=== PATIENT | male | born 1990 | race African-American/Black ===

== ENCOUNTER 2019-01-28 05:51 | Day surgery (SDC) | payer OTHER ==
--- NOTE | 2019-01-27 21:24 | PREOPHP ---
DATE OF ADMISSION: 01/28/2019 HISTORY OF PRESENT ILLNESS: A 28-year-old patient is going to be admitted for diagnostic arthroscopy of the right shoulder, examination under general anesthesia, SLAP repair, Bankart repair, possible s ynovectomy and rotator cuff repair. This 28-year-old patient has been experiencing right shoulder pain for quite a while. Conservative t reatment resulted in limited benefit to the patient and the patient requested surgical intervention. PAST MEDICAL HISTORY: Unremarkable. SOCIAL HISTORY: The patient is nonsmoker, nondrinker. FAMILY HISTORY: Negative. PAST SURGICAL HISTORY: Right knee surgery. ALLERGIES: NO HISTORY OF ALLERGY TO MEDICATION. MEDICATIONS: The patient's medications in the past had been: 1. Folic acid. 2. D3. 3. Naprosyn. 4. For postop Bactrim-DS and ibuprofen was given. REVIEW OF SYSTEMS: Limited to present illness. PHYSICAL EXAMINATION: VITAL SIGNS: Height of 5 feet 10 inches, weighing 174 pounds. SKIN: Within normal limits. ENT: PERRLA. HEAD AND NECK: Normocephalic. Trachea midline. Bilateral symmetrical carotid pulses. No mass, no bruit, no lymphadenopathy. CARDIOVASCULAR: S1, S2 normal. No murmur. No JVD. No peripheral edema. LUNGS: Clear. ABDOMEN: Soft. No organomegaly. No mass. Bowel sounds present. GENITOURINARY AND RECTAL: Not done. Not pertinent to this admission. MUSCULOSKELETAL: Head and neck unremarkable. Right shoulder close to 90% range of motion, tenderness over the anterior glenohumeral joint, s ubacromial space. Positive dimple sign. Spine and both lower extremities has been normal. IMAGING: MRI of the right shoulder shows Hill-Sachs lesion and trace amount of anterior inferi or labrum compatible with chronic Bankart type injury, nondisplaced tear of the superior labrum exten ding into the posterior inferior labrum. DIAGNOSES: 1. Chronic anterior instability. 2. Possible posterior labral injury. 3. SLAP lesion. 4. Bankart lesion. 5. Possible rotator cuff tear. TREATMENT PLAN: Alternatives, risks and benefits discussed. The patient understands possible compli cations from surgery such as infection, bleeding, nerve damage, vascular damage, possibility of deep venous thrombosis, pulmonary embolism, hypersensitivity from medication, and even . [place] resul t may not be obtained depending on actual findings known or unknown factor or factors. No guarantee is being made. Formal H and P supposed to be done by PCP. Dictated By: ROSS HAZEL/DAE Conf#: [id number] DID#: [id number]
[2019-01-28] VITALS (14 sets, daily range): BP systolic 136–179; BP diastolic 78–108; PULSE 67–100; RESP 14–33; Ht 179.1 cm; Wt 78.2 kg
[~2019-01-28] VITALS: Ht 179.1 cm; Wt 78.2 kg
[2019-01-28] MEDS ORDERED: morphine SULFATE/PF (10 MG/10 ML) INJ ONE (06:54)
[2019-01-28] MEDS ORDERED: LACTATED RINGER'S 1,000 ML IV SCH (07:00)
[2019-01-28] MEDS ORDERED: EPINEPHrine 1 MG/ML 30 ML INJ IRR SCH (07:00)
[2019-01-28] MEDS ORDERED: GLYCOPYRROLATE 0.4 MG INJ ONE (07:00)
[2019-01-28] MEDS ORDERED: NEOSTIGMINE 3 MG/3 ML SYRINGE ONE (07:00)
--- NOTE | 2019-01-28 07:25 | PREAC ---
Date/Time of Note Date/Time of Note DATE: 01/28/19 TIME: 07:23 Anesthesia Eval and Record Evaluation Time Pre-Procedure Interview DATE: 01/28/19 TIME: 07:23 Age 28 Sex male NPO: 8 hrs Preoperative diagnosis Rt shoulder SLAP, Planned procedure Rt shoulder Arthroscopy Past Medical History Past Medical History: None Surgery & Anesthesia Issues No known issue Meds Anticoagulation: No Beta Nick within 24 hr: No Reason Beta Nick not given: Pt. not on B-Nick No Active Prescriptions or Reported Meds Current Medications Epinephrine (EPINEPHrine) ONCE IRR ; Start 01/28/19 at 07:00; Stop 01/28/19 at 10:00 Lactated Ringer's 1,000 ml @ 20 mls/hr Q24H IV Last administered on 01/28/19at 07:15; Admin Dose 20 MLS/HR; Start 01/28/19 at 07:00; Stop 01/30/19 at 08:59 Meds reviewed: Yes Allergies Coded Allergies: No Known Allergy (Unverified , 01/28/19) Allergies Reviewed: Yes Labs/Studies Labs Reviewed: Reviewed by anesthesiologist test: N/A Studies: ECG Pre-procedure Exam Last vitals Vital Signs Date Temp Pulse Resp B/P (MAP) Pulse Ox O2 O2 Flow FiO2 Time Delivery Rate 01/28/19 98.3 67 16 139/78 97 Room Air 07:06 (98) Airway: Adequate mouth opening, Adequate thyromental dist Mallampati: Mallampati II Teeth: Normal Lung: Normal Heart: Normal ASA Physical Status ASA physical status: 2 Emergency: None Planned Anesthetic General/MAC: ETT Planned Pain Management Parenteral pain med, Local by surgeon Pre-operative Attestations Prior to commencing anesthesia and surgery, the patient was re-evaluated, there was verification of: *The patient's identity *The results of appropriate recent lab work and preoperative vital signs *The above evaluation not changing prior to induction *Anesthetic plan, risk benefits, alternative and complications discussed with patient/family; questions answered; patient/family understands, accepts and wishes to proceed. NICOLLE MAC MD January 28, 2019 07:25
[2019-01-28] MEDS ORDERED: METOCLOPRAMIDE 10 MG INJ IV PRN (07:30)
[2019-01-28] MEDS ORDERED: ONDANSETRON 4 MG INJ IV PRN ×2 (07:30→12:00)
[2019-01-28] MEDS ORDERED: FENTAnyl 50 MCG/ML VIAL IV PRN ×2 (07:30→12:00)
[2019-01-28] MEDS ORDERED: DIPHENHYDRAMINE 50 MG INJ IV PRN ×2 (07:30→12:00)
[2019-01-28] MEDS ORDERED: MEPERIDINE 25 MG INJ IV PRN (07:30)
[2019-01-28] MEDS ORDERED: HYDROmorphONE 1 MG/5 ML IV SYRINGE IV PRN ×3 (07:30→12:00)
[2019-01-28] MEDS ORDERED: MIDAZOLAM 1 MG/ML 2 ML INJ ONE (07:41)
[2019-01-28] MEDS ORDERED: LIDOCAINE 2% (SDV) 5 ML INJ ONE (10:31)
[2019-01-28] MEDS ORDERED: PROPOFOL 20 ML ONE (10:31)
[2019-01-28] MEDS ORDERED: ONDANSETRON 4 MG INJ ONE (10:31)
[2019-01-28] MEDS ORDERED: ROCURONIUM 50 MG INJ ONE (10:31)
[2019-01-28] MEDS ORDERED: ROPIVACAINE 0.5 % 30 ML VIAL ONE (10:37)
--- NOTE | 2019-01-28 11:05 | SIPON ---
Date/Time of Note Date/Time of Note DATE: 01/28/19 TIME: 10:58 Operative Report Preoperative Diagnosis Right shoulder SLAP lesion, extensive Bankart lesion, synovitis, and loose body Postoperative Diagnosis The same Operation/Procedure Performed Diagnostic scope, EAU, SYNOVECTOMY, REMOVAL OF LOOSE BODY, slap. AND EXTENSIVE BANKART REPAIR Surgeon Ross Green MD assistant professor of archaeology [place] Anesthesia: general Estimated blood loss: minimal Transfusion Required none Specimen None Grafts/Implants none Complications none ROSS GREEN MD January 28, 2019 11:05
[2019-01-28] MEDS ORDERED: PROVENTIL HFA 6.7GM INHALER ONE (11:35)
--- NOTE | 2019-01-28 11:52 | PAC ---
Date/Time of Note Date/Time of Note DATE: 01/28/19 TIME: 11:51 Post-Anesthesia Notes Post-Anesthesia Note Last documented vital signs Vital Signs Date Temp Pulse Resp B/P (MAP) Pulse Ox O2 O2 Flow FiO2 Time Delivery Rate 01/28/19 94 20 170/87 100 Mask 11:47 (114) 01/28/19 98.0 11:42 Activity: WNL Respiratory function: WNL Cardiovascular function: WNL Mental status: Baseline Pain reasonably controlled: Yes Hydration appropriate: Yes Nausea/Vomiting absent: Yes Comments BP:150/56, P:78, Spo2:100%, T:98,9 NICOLLE MAC MD January 28, 2019 11:52
[2019-01-28] MEDS ORDERED: ALBUTEROL 0.083% (NEB) 2.5 MG/3 ML AMP HHN PRN (12:00)
[2019-01-28] MEDS ORDERED: LABETALOL HCL 20MG INJ IV PRN (12:00)
[2019-01-28] MEDS ORDERED: OXYCODONE/ACETAMINOPHEN (5/325) TAB PO PRN (12:00)
--- NOTE | 2019-01-28 14:29 | OPR ---
DATE OF OPERATION: PREOPERATIVE DIAGNOSES: Extensive Bankart lesion, superior labrum anterior and posterior synovitis l esion, loose body, right shoulder. POSTOPERATIVE DIAGNOSES: Extensive Bankart lesion, superior labrum anterior and posterior synovitis lesion, loose body, right shoulder. OPERATIVE PROCEDURES: Diagnostic arthroscopy, examination under general anesthesia, extensive Bankar t repair, SLAP repair, synovectomy, removal of loose body, right shoulder. ANESTHESIA: General and shoulder block. ANESTHESIOLOGIST: Osvaldo Hough MD BLEEDING: Minimal. COMPLICATIONS: None. OPERATIVE PROCEDURE IN DETAILS: The patient was transferred to the operating room and placed on the table in supine position. General anesthesia was induced. The patient was put in left decubitus pos ition. Axillary roll was applied. Bony areas were padded. Beanbag was deflated. Right shoulder wa s shaved, prepped and draped in routine fashion. Landmarks were marked. Through a posterior portal, glenohumeral joint was entered and anterolateral portal was established. Examination of the shoulde r indicated type 2 SLAP lesion, complete the marking down of the anterior labrum. There was rahel sh oulder instability under general anesthesia. There was synovitis superiorly and posteriorly. There was evidence of a Hill-Sachs lesion. There was part of the tissue from the surface inferior part whi ch was stripped off and layered and that was attached from loose body. Essentially, shoulder scoped from the posterior portal to the anterolateral portal and the cannula was inserted posteriorly to acc ess this tissue. It was removed with the help of shaver and the Arthrocare and smoothened the edges. Synovectomy with coagulation was done with Arthrocare Bovie. Trimming of the superior labrum was d one with shaver and Arthrocare Bovie. Then, we used SutureLasso, FiberStick and PushLock to repair t he type 2 SLAP lesion on the bleeding surface. Then we paid attention and partial synovectomy was done anteriorly. Then, abrasion of the anterior g lenoid was done. We used SutureLasso, FiberStick and PushLock adjacent to the anterior glenoid rim a nd shoulder was unstable consistent with capsular redundancy. We used another SutureLasso, FiberStic k to close the redundancy of the capsule. We incorporated it into the anterior labrum in 3 o'clock p osition on a bleeding surface. Shoulder was evacuated from debris with copious amounts of warm salin e irrigation. The rotator cuff was intact from inside. Lateral portal was established. We entered the subacromial space. Subacromial space indicated flat acromion and rotator cuff was identified. Shoulder joint, subacromial space was evacuated from debris with copious amounts of normal saline irr igation. The 2 anterior portal and lateral portal and posterior portal were closed with skin basilia . A 10 mg Duramorph mixed with 10 mL of injectable saline was injected half into the glenohumeral jeannie int and half in subacromial space. Sterile dressings were applied. Shoulder immobilizer was placed on. The patient was put supine and at this point, Dr. Hough prepared himself to give him shoulder b lock. Subsequently, the patient was taken to recovery room in good and stable condition. Dictated By: ROSS HAZEL/DAE Conf#: [id number] DID#: [id number]
== END 2019-01-28 15:30 | disposition home or self-care (01) ==
LOC: SDS 05:51
PROVIDERS: ATTEND Internal Medicine Endocrinology, Diabetes & Metabolism
DX: S43.431A Superior glenoid labrum lesion of right shoulder, initial encounter (principal); M24.011 Loose body in right shoulder; M65.9 Synovitis and tenosynovitis, unspecified; X58.XXXA Exposure to other specified factors, initial encounter; Y93.89 Activity, other specified; Y92.89 Other specified places as the place of occurrence of the external cause; Y99.8 Other external cause status
CPT/HCPCS: 29806; C1713; J0171; J2250; J2274; J2405; J2710; J2795; J3010

== ENCOUNTER 2019-05-13 06:14 | Day surgery (SDC) | payer OTHER ==
[2019-05-12 17:20] VITALS: BMI 24.4
[2019-05-13] VITALS (12 sets, daily range): BP systolic 118–146; BP diastolic 57–81; PULSE 60–92; RESP 14–38; Ht 180.3 cm; Wt 79.7 kg
[~2019-05-13] VITALS: Ht 180.3 cm; Wt 79.7 kg
[2019-05-13] MEDS ORDERED: EPINEPHrine 1 MG/ML 30 ML INJ ONE (06:53)
[2019-05-13] MEDS ORDERED: CEFAZOLIN 1 GM/50 ML (PMX) 50 ML IVPB SCH (07:00)
[2019-05-13] MEDS ORDERED: CEFAZOLIN 1 GM INJ ONE (07:40)
[2019-05-13] MEDS ORDERED: LIDOCAINE 2% (SDV) 5 ML INJ ONE (07:40)
[2019-05-13] MEDS ORDERED: PROPOFOL 20 ML ONE (07:40)
[2019-05-13] MEDS ORDERED: ONDANSETRON 4 MG INJ ONE (07:40)
[2019-05-13] MEDS ORDERED: SEVOFLURANE 15 MIN ONE (07:40)
[2019-05-13] MEDS ORDERED: MEPERIDINE 100 MG INJ ONE (07:40)
[2019-05-13] MEDS ORDERED: morphine SULFATE/PF (10 MG/10 ML) INJ ONE (08:05)
[2019-05-13] MEDS ORDERED: MEPERIDINE 25 MG INJ IV PRN (09:00)
[2019-05-13] MEDS ORDERED: FENTAnyl 50 MCG/ML VIAL IV PRN ×3 (09:00)
[2019-05-13] MEDS ORDERED: MIDAZOLAM 1 MG/ML 2 ML INJ IV PRN (09:00)
[2019-05-13] MEDS ORDERED: OXYCODONE/ACETAMINOPHEN (5/325) TAB PO PRN ×2 (09:00)
[2019-05-13] MEDS ORDERED: METOCLOPRAMIDE 10 MG INJ IV PRN (09:00)
[2019-05-13] MEDS ORDERED: DIPHENHYDRAMINE 50 MG INJ IV PRN (09:00)
[2019-05-13] MEDS ORDERED: HYDROmorphONE 1 MG/5 ML IV SYRINGE IV PRN ×6 (09:00→12:00)
[2019-05-13] MEDS ORDERED: ONDANSETRON 4 MG INJ IV PRN (09:00)
[2019-05-13] MEDS ORDERED: HYDROCODONE/APAP (5/325) TAB PO PRN (09:30)
[2019-05-13] MEDS ORDERED: ALBUTEROL 0.083% (NEB) 2.5 MG/3 ML AMP HHN STA (10:02)
[2019-05-13] MEDS ORDERED: ALBUTEROL 0.5% (NEB) 2.5 MG/0.5 ML AMP ONE (10:04)
== END 2019-05-13 15:05 | disposition home or self-care (01) ==
LOC: SDS 06:14
PROVIDERS: ATTEND Internal Medicine Endocrinology, Diabetes & Metabolism
DX: S83.241A Other tear of medial meniscus, current injury, right knee, initial encounter (principal); S83.281A Other tear of lateral meniscus, current injury, right knee, initial encounter; M65.861 Other synovitis and tenosynovitis, right lower leg; M67.51 Plica syndrome, right knee; X58.XXXA Exposure to other specified factors, initial encounter; Y93.89 Activity, other specified; Y92.89 Other specified places as the place of occurrence of the external cause; Y99.8 Other external cause status
CPT/HCPCS: C1713; J0171; J0690; J2175; J2274; J2405